=== PATIENT | female | born 1955 ===

== ENCOUNTER 2025-06-13 12:48 | Outpatient (AMB) | payer OTHER, SELFPAY ==
--- OUTSIDE RECORDS SUMMARY | 2025-03-05 05:00 | XMS_ITS ---
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 * Medical History: Objective: * Vitals: Assessment: Plan: * Treatment: * Images: * The named appointment provid er may or may not be the originator of this progress note, and it is not deemed complete until electronically signed by the appointment provider. Sign off status: Pending * Provider: Monisha Glez DPM Date: 0 03/05/2025 Generated for Billy haddad/Vladislav/Millaitting on: 08/14/2024 03:05 PM EST
--- NOTE | 2025-06-13 12:58 | MHC.PC.OV ---
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 Intake Note: new patient presents with high blood pressure, diabetes and depression Microwave Radio Technician Required: No Microwave Radio Technician Name: Doctor speaks martiniquais Accompanied by: son and SLAGGER Allergies No Known Allergies Allergy (Verified 06/13/25 13:04) Medication List - Last Reconciled 06/13/25 by Unruly Jim MD acetaminophen 1,000 mg PO Q8H PRN atorvastatin 40 mg PO DAILY lidocaine 5% 1 patch topical DAILY lorazepam mg PO losartan 50 mg PO DAILY metformin 1,000 mg PO BID pantoprazole 20 mg PO BID risperidone 0.5 mg PO DAILY sitagliptin phosphate (Januvia) 100 mg PO DAILY venlafaxine ER 150 mg PO DAILY Tobacco use date assessed: 06/13/25 Fall risk assessment: 2 + Falls in past year Last assessed Fall Risk: 06/13/25 Dental Screening Dental Screen Date: 06/13/25 Did you have a dental visit in the last 12 months?: No Did you have a dental problem in the last 6 months where you did not have access to dental care?: No Was dental information given to patient?: Patient has dentist HPI HPI Comments History of Present Illness Details History of Present Illness The patient is a 70 year old individual presenting to [facility] care and for management of multiple chronic medical conditions. Chronic Pain: The patient has a history of a clavicle fracture approximately 4 months ago from a fall in the bathroom, which required surgical repair with a plate. The patient also reports chronic left leg pain, which started about 8 years ago, and is associated with difficulty bending or lifting the leg. This leg issue may have started after a fall in a bathtub. The patient also endorses associated hip and back pain. The patient has never had X-rays of the affected areas. Additionally, there is a report of pain extending down from the neck. Type 2 Diabetes Mellitus: The patient has a history of diabetes, for which the patient takes metformin and sitagliptin (Januvia). The last check-up was about two months ago, and the last lab work was done 3-4 months ago, prior to a clavicle operation. The patient has seen a tracing lathe set up operator a few months ago. Anxiety and Depression: The patient has a history of depression and anxiety, managed by a psychiatrist in [place]. Medications prescribed by the psychiatrist include risperidone and venlafaxine. The patient also has a prescription for a benzodiazepine, which the current provider has expressed concerns about due to risks of falls and fractures in the elderly. Gastroesophageal Reflux Disease: The patient has a history of reflux treated with omeprazole. The patient reports ongoing symptoms despite this medication. Dietary changes, including removing spicy sauces and citrus, have been attempted. Health Maintenance: The patient is 70 years old and has never had a colonoscopy or a Pap smear. The patient's sister of breast cancer. The last mammogram was about three years ago. The patient has never had a bone density scan for osteoporosis. The patient still has a uterus. Surgical History: - Clavicle fracture repair with plate, approximately 4 months ago - section - Cholecystectomy Medications: - Losartan 50 mg for hypertension - Metformin for diabetes - Omeprazole for reflux - Risperidone for psychiatric condition - Sitagliptin (Januvia) for diabetes - Venlafaxine for depression/anxiety - Benzodiazepine (unspecified) for psychiatric condition Social History: - Substance Use: Denies ever smoking or drinking alcohol. - Functional Status: The patient ambulates but reports difficulty walking. Family History: - A sister from breast cancer. - Denies family history of colon cancer. Diagnostic Results: - Tests: The patient has results from a sleep apnea study, which the patient does not understand. Past Medical History - Type 2 Diabetes Mellitus - Depression - Anxiety - Gastroesophageal reflux disease - Sleep apnea Health Maintenance - Order a Cologuard test for colon cancer screening. - Order a mammogram for breast cancer screening. - Order a DEXA scan for osteoporosis screening. - Order comprehensive lab work including a CBC, CMP, lipid panel, TSH, magnesium, vitamin B12, folate, vitamin D, hepatitis panel, and HIV test. [facility] Medical History (Updated 06/16/25 @ 11:39 by Unruly Jim MD) Sleep apnea Hypertension GERD (gastroesophageal reflux disease) Anxiety and depression Osteoporosis screening Post-menopausal Left shoulder pain Back pain, chronic Left leg pain History of broken collarbone Type 2 diabetes mellitus Surgical History (Updated 06/13/25 @ 13:10 by Cezar Singh CMA) History of cholecystectomy Family History (Updated 06/13/25 @ 13:11 by Cezar Singh CMA) Mother Mental problems Hypertension Sister Hypertension Cancer Social History (Updated 06/13/25 @ 13:11 by Cezar Singh CMA) Housing: Apartment Alcohol intake: never Patient Tobacco Use Status: Never used Tobacco e-Cigarette/Vaping Use: Never Used Second Hand Smoke Exposure: No service: No Current occupational status: disabled Cognitive needs: Yes Hearing needs: No Vision needs: Yes Questionnaire PHQ-9 Over the last 2 weeks, how often have you been bothered by any of the following problems? 1. Little interest or pleasure in doing things: several days 2. Feeling down, depressed, or hopeless: several days 3. Trouble falling or staying asleep, or sleeping too much: several days 4. Feeling tired or having little energy: several days 5. Poor appetite or overeating: more than half the days 6. Feeling bad about yourself - or that you are a failure or have let yourself or your family down: several days 7. Trouble concentrating on things, such as reading the newspaper or watching television: several days 8. Moving or speaking so slowly that other people could have noticed. Or the opposite - being so fidgety or restless that you have been moving around a lot more than usual: not at all 9. Thoughts that you would be better off or of hurting yourself in some way: not at all Total score: 8 Depression Screening Interpretation: Negative Depression Screening Done: Yes 78096 - PHQ-9 Billing: Yes Source: Developed by Drs. Jeanmarie Newell, Opal Madrid, Rome Martínez and colleagues, with an educational bear from [employer]. Thrive Questionnaire Date Thrive assessed: 06/13/25 I am a: Parent/Caregiver What is your living situation today?: I have a steady place to live Within the past 12 months, did the food you bought not last and you didn't have the money to get more?: I choose not to answer this question Within the past 12 months, did you worry whether your food would run out before you got money to buy more?: I choose not to answer this question Do you have trouble paying for medicines?: No Do you have trouble getting transportation to medical appointments?: No Do you have trouble paying your heating and electricity bill?: Yes Do you have trouble taking care of your child, family member or friend?: No Are you currently unemployed and looking for a job?: I choose not to answer this question Are you interested in more education?: No Please select the resources that you would like help with: None Currently or been in a relationship where the following occur: No concerns reported THRIVE Score: 1 AUDIT C Alcohol Use Questionnaire (AUDIT-C) 1. How often do you have a drink containing alcohol?: Never Total Score: 0 MARIA ELENA-7 AMB Questionnaire MARIA ELENA-7 Date MARIA ELENA - 7 assessed: 06/13/25 Feeling nervous, anxious, or on edge: 0 = Not at all Not being able to stop or control worryin = Several days Worrying too much about different things: 1 = Several days Trouble relaxin = Several days Being so restless that it is hard to sit still: 0 = Not at all Becoming easily annoyed or irritable: 1 = Several days Feeling afraid as if something awful might happen: 0 = Not at all Total MARIA ELENA-7 score (0-4 normal; 5-9 mild; 10-14 moderate; 15-21 severe): 4 Source: Developed by Drs. Jeanmarie Newell, Opal Madrid, Rome Martínez and colleagues, with an educational bear from [employer]. MARIA ELENA-7 Assessment Billing MARIA ELENA-7 Assessment Tool: MARIA ELENA-7 Assessment 01994 Review of Systems Narrative Review of Systems - Psychiatric: Reports history of depression and anxiety. - Gastrointestinal: Reports reflux symptoms. - Musculoskeletal: Reports chronic left leg pain with difficulty bending and lifting the leg, left hip pain, back pain, and pain down from the neck. - Neurological: Denies a known history of epilepsy but mentions a rash in childhood that the patient thought might have been related. - All other systems reviewed and are negative. 10-point ROS reviewed and negative except as noted in HPI Physical exam (Primary Care) Vital Signs: Last Vital Signs Temp 97.6 F 06/13/25 13:12 Pulse 110 H 06/13/25 13:12 Resp 18 06/13/25 13:12 BP 125/69 06/13/25 13:12 Pulse Ox 96 06/13/25 13:12 Oxygen Delivery Method Room Air 06/13/25 13:12 Tobacco/Smoking Status: Tobacco use Status Tobacco use date assessed 06/13/25 06/13/25 13:13 Patient Tobacco Use Status Never used Tobacco 06/13/25 13:13 e-Cigarette/Vaping Use Never Used 06/13/25 13:13 PHQ-9: PHQ-9 Score PHQ-9: Total score 8 06/13/25 13:19 Depression Screening Interpretation: Negative Thrive Assessment: Date of Thrive Assessment Date Thrive assessed 06/13/25 06/13/25 13:01 Currently or been in a relationship where the following occur: No concerns reported Narrative Physical Exam General: Well-appearing, in no acute distress. Vital signs: Within normal limits. HEENT: Normocephalic, atraumatic. PERRLA, EOMI. Conjunctiva clear, sclera anicteric. Oropharynx clear, mucous membranes moist. TMs intact bilaterally. Neck: Supple, no lymphadenopathy, no thyromegaly, no JVD or carotid bruits. Cardiovascular: RRR, normal S1/S2, no murmurs, rubs, or gallops. Peripheral pulses 2+ and symmetric. No edema. Respiratory: Lungs clear to auscultation bilaterally, no wheezes, rales, or rhonchi. Normal effort. Abdomen: Soft, non-tender, non-distended. Normoactive bowel sounds. No hepatosplenomegaly, no masses. MSK: Limited range of motion in the left leg, difficulty bending and lifting. History of fracture in the clavicle and section. No joint swelling or deformity. Normal gait. Skin: Warm, dry, intact. No rashes, lesions, or pallor. Neuro: Alert and oriented x3. Cranial nerves II-XII intact. Strength 5/5 throughout. Sensation intact. Reflexes 2+ symmetric. Normal coordination and gait. Psych: Appropriate mood and affect. Normal judgment and insight. History of depression and anxiety, currently on risperidone and venlafaxine. Coding Level of Care Code New Pt Level 4 (47298) Diagnoses Type 2 diabetes mellitus E11.9 Osteoporosis screening Z13.820 Post-menopausal Z78.0 Back pain, chronic M54.9; G89.29 Left leg pain M79.605 Left shoulder pain M25.512 Anxiety and depression F41.9; F32.A GERD (gastroesophageal reflux disease) K21.9 Hypertension I10 Sleep apnea G47.30 Additional Codes MARIA ELENA-7 Assessment Billing - MARIA ELENA-7 Assessment Tool: MARIA ELENA-7 Assessment 55311 ([id number]) PHQ-9 - 65566 - PHQ-9 Billing: Yes ([id number]) Assessment & Plan Assessment & Plan (1) Type 2 diabetes mellitus: Code(s): E11.9 - Type 2 diabetes mellitus without complications Category: Medical (2) Osteoporosis screening: Code(s): Z13.820 - Encounter for screening for osteoporosis Category: Medical (3) Post-menopausal: Code(s): Z78.0 - Asymptomatic menopausal state Category: Medical (4) Back pain, chronic: Code(s): M54.9 - Dorsalgia, unspecified; G89.29 - Other chronic pain Category: Medical (5) Left leg pain: Code(s): M79.605 - Pain in left leg Category: Medical (6) Left shoulder pain: Code(s): M25.512 - Pain in left shoulder Category: Medical (7) Anxiety and depression: Code(s): F41.9 - Anxiety disorder, unspecified; F32.A - Depression, unspecified Category: Medical (8) GERD (gastroesophageal reflux disease): Code(s): K21.9 - Gastro-esophageal reflux disease without esophagitis Category: Medical (9) Hypertension: Code(s): I10 - Essential (primary) hypertension Category: Medical (10) Sleep apnea: Code(s): G47.30 - Sleep apnea, unspecified Category: Medical Plan Consent The options for colon cancer screening were discussed with the patient. The first option presented was a colonoscopy, which involves referral to a sensitized paper tester, a preparation the day before, sedation for the procedure, and if results are normal, is repeated in 10 years. The second option presented was Cologuard, an at-home stool-based test kit that is mailed to the patient's house, and if normal, is repeated in three years. The patient was asked to decide which option is preferred. Patient was informed and verbally consented to the use of an ambient scribe for clinic note documentation during this visit. Plan 1. Chronic Pain - Order X-rays of the cervical, thoracic, and lumbar spine, as well as the hip and leg. - Refer to physical therapy for evaluation and management of back and leg pain. - Prescribe lidocaine patches for symptomatic relief. - Advise use of a heating pad at home. 2. Type 2 Diabetes Mellitus - Continue current medications including metformin and sitagliptin. - Order labs including hemoglobin A1c. - Refer to a tracing lathe set up operator for foot care. - Refer to an personal service workers for a diabetic eye exam. - Refer to a concrete form setter and a coding educator for counseling. 3. Gastroesophageal Reflux Disease - Discontinue omeprazole due to lack of efficacy. - Start pantoprazole, to be taken twice a day. 4. Depression And Anxiety - Patient to continue care with their psychiatrist. - Continue risperidone and venlafaxine as prescribed. - Will not prescribe or refill benzodiazepines due to the high risk of falls and adverse events in an elderly patient. Discussion Notes I had a detailed discussion with the patient about the established plan of care. I explained that I would not be prescribing any benzodiazepines due to the significant risk of falls, dizziness, and potential for hip fractures in a patient of this age, which carries a high mortality risk. We reviewed the two primary options for colon cancer screening: a colonoscopy through a specialist, which is valid for 10 years if negative, or an at-home Cologuard test, which is valid for three years. For the ongoing reflux symptoms, I explained we would stop the current medication, omeprazole, and start pantoprazole twice daily to see if it provides better relief. To investigate the chronic musculoskeletal pain, I have ordered a series of X-rays and a referral to physical therapy. I also recommended using lidocaine patches and heat for symptomatic relief. Finally, I placed orders for comprehensive lab work, a mammogram, and a DEXA scan to address health maintenance, along with referrals to podiatry, ophthalmology, a concrete form setter, and a coding educator for comprehensive management of diabetes. Patient Instructions - You will be switched from omeprazole to pantoprazole for your stomach acid. - Please take one pill in the morning and one in the evening. - For your pain, you may use lidocaine patches and apply a heating pad to the affected areas. - You have been referred to physical therapy for your leg and back pain. - Please go to a lab to have your blood drawn for the tests that were ordered. - Orders have been placed for X-rays of your neck, back, hip, and leg. - A Cologuard kit will be mailed to your home for colon cancer screening. - Please follow the instructions provided in the box. - Please schedule an appointment for a mammogram and a bone density (DEXA) scan. - We are referring you to an eye doctor, a foot doctor, a concrete form setter, and a coding educator. - Please make appointments with these specialists. - This office will not prescribe anxiety medications like benzodiazepines due to safety risks. - Please discuss this with your psychiatrist. Medical Decision Making The patient is a 70 year old individual establishing care with multiple undertreated chronic conditions and significant gaps in health maintenance. The patient's widespread chronic musculoskeletal pain, particularly in the left leg and hip, has been present for years without a formal workup; therefore, imaging with X-rays and a referral to physical therapy are indicated to establish a diagnosis and treatment plan. The patient's GERD symptoms persist despite treatment with omeprazole, suggesting the need for a change in therapy. I am escalating care by switching to pantoprazole twice daily. A significant portion of the visit was dedicated to addressing overdue preventative screenings appropriate for the patient's age. Given the lack of any prior screening, I ordered a mammogram, a DEXA scan, and a Cologuard test after discussing the alternatives. Comprehensive lab work will provide a baseline and assess the status of chronic conditions like diabetes. Finally, the use of a benzodiazepine in this 70-year-old patient presents a major safety concern. The risks of falls and subsequent fracture far outweigh the benefits, and I have made the decision not to continue this prescription from my office, counseling the patient on the clear rationale. Holistic management of the patient's diabetes necessitates referrals to ophthalmology, podiatry, and nutrition. Total Time Statement 30 min Total time spent caring for the patient today includes pre-visit chart review, documentation, review of laboratory and diagnostic imaging results, medication reconciliation, medically necessary evaluation, counseling on diagnoses, care coordination, ordering appropriate tests and medications, review of tests performed by other providers, reporting test results to the patient, and communication with other healthcare providers. Orders: Orders Hepatitis B Surface Antigen 06/13/25 Z13.9 - Encounter for screening, unspecified TSH reflex Free T4 06/13/25 Z13.9 - Encounter for screening, unspecified UA CC w/rflx Micro + Cult 06/13/25 Z13.9 - Encounter for screening, unspecified Lipid Panel 06/13/25 Z13.9 - Encounter for screening, unspecified Vitamin B12 and Folate 06/13/25 Z13.9 - Encounter for screening, unspecified Hemoglobin A1c 06/13/25 Z13.9 - Encounter for screening, unspecified XR hip LT min 2V 06/13/25 M79.605 - Pain in left leg Complete Blood Count Auto Diff 06/13/25 Z13.9 - Encounter for screening, unspecified Syphilis Screen 06/13/25 Z13.9 - Encounter for screening, unspecified Comprehensive Met. Panel 06/13/25 Z13.9 - Encounter for screening, unspecified Hepatitis C Antibody 06/13/25 Z13.9 - Encounter for screening, unspecified HIV Ab/Ag 06/13/25 Z13.9 - Encounter for screening, unspecified Magnesium 06/13/25 Z13.9 - Encounter for screening, unspecified Vitamin D 1,25 dihydroxy 06/13/25 Z13.9 - Encounter for screening, unspecified Hepatitis B Surface Antibody 06/13/25 Z13.9 - Encounter for screening, unspecified MM screening mammo BI 06/13/25 Z12.31 - Encounter for screening mammogram for malignant neoplasm of breast XR femur LT 2V 06/13/25 M79.605 - Pain in left leg XR lumbar spine 2-3V 06/13/25 G89.29 - Other chronic pain, M54.9 - Dorsalgia, unspecified XR cervical spine 4V 06/13/25 G89.29 - Other chronic pain, M54.9 - Dorsalgia, unspecified XR thoracic spine 3V 06/13/25 G89.29 - Other chronic pain, M54.9 - Dorsalgia, unspecified PT Evaluation and Treatment 06/13/25 G89.29 - Other chronic pain, M25.512 - Pain in left shoulder, M54.9 - Dorsalgia, unspecified, M79.605 - Pain in left leg XR DEXA axial skeleton 06/13/25 Z13.820 - Encounter for screening for osteoporosis, Z78.0 - Asymptomatic menopausal state Referrals Nurse Navigator Referral E11.9 - Type 2 diabetes mellitus without complications Neurology Referral E11.9 - Type 2 diabetes mellitus without complications Cologuard Test Z12.11 - Encounter for screening for malignant neoplasm of colon, Z12.12 - Encounter for screening for malignant neoplasm of rectum Podiatry Referral E11.9 - Type 2 diabetes mellitus without complications Ophthalmology Referral E11.9 - Type 2 diabetes mellitus without complications Medications: New lidocaine 5% leave on most painful area for up to 12 hrs 1 patch topical DAILY 15 ea 0RF M25.512 - Pain in left shoulder losartan 50 mg PO DAILY 90 tabs 0RF pantoprazole 20 mg PO BID 60 tabs 0RF
[2025-06-13 13:12] VITALS: BP 125/69; PULSE 110; RESP 18; TEMP 36.4; O2SAT 96
--- OUTSIDE RECORDS SUMMARY | 2025-06-13 15:06 | XMS_ITS | Patient Health Record ---
Author Organization [facility] Arielle barker [place] Address [address] [place] [id number] Care Team Providers Care Stage Manager Name Role Phone Rosa Maria Newton Primary Care Provider Jarred Aly Unavailable [phone] Reason For Referral No Information Plan Of Treatment No Information Insurance Providers Payer Name Payer Address Payer Phone Subscriber Number Group Number Insured Name Patient Relationship to Insured Coverage Start Date Coverage End Date [facility] [id number] ROX[place] Dodson [id number] Dion Raman Self - patient is the insured
== END 2025-06-13 13:47 | disposition home or self-care (01) ==
LOC: HO.HMCFMS 12:49
PROVIDERS: Visit Provider Student in an Organized Health Care Education/Training Program
DX: E11.9 Type 2 diabetes mellitus without complications (principal); Z13.820 Encounter for screening for osteoporosis; Z78.0 Asymptomatic menopausal state; M54.9 Dorsalgia, unspecified; G89.29 Other chronic pain; M79.605 Pain in left leg; M25.512 Pain in left shoulder; F41.9 Anxiety disorder, unspecified; F32.A Depression, unspecified; K21.9 Gastro-esophageal reflux disease without esophagitis; I10 Essential (primary) hypertension; G47.30 Sleep apnea, unspecified

== ENCOUNTER 2025-06-13 12:48 | Outpatient (REF) | payer OTHER, SELFPAY ==
--- OUTSIDE RECORDS SUMMARY | 2025-06-13 16:38 | XMS_ITS | Clinical Summary ---
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 Name Role Phone Rosa Maria Newton MD Primary Care Provider [phone] Encounters Date Type Department Care Team Description 03/27/2025 Telephone Gastroenterology - [place] [address] [address] Cynthia Bonilla MA from Last 3 Months Social History Tobacco Use Types Packs/Day Years Used Date Smoking Tobacco: Never Assessed Comments Unknown Sex and Gender Information Value Date Recorded Sex Assigned at Not on file Legal Sex Female 3:59 AM EST Gender Identity Not on file Sexual Orientation Not on file Plan of Treatment Health Maintenance Due Date Last Done Comments Breast Cancer Screening 1955 Colorectal Cancer Screening: Colonoscopy 1955 Zoster Vaccines (1 of 2) 2005 Hepatitis B Vaccines (2 of 3 - 19+ 3-dose series) 12/15/2018 11/17/2018 Pneumococcal Vaccine: 50+ Ye ars (2 of 2 - PCV) 08/19/2019 08/19/2018 Falls Risk Assessment 06/14/2022 Hepatitis C Screening 06/14/2022 Medicare Annual Wellness Visit 06/14/2022 Osteoporosis Screening (Bone Density Screening) 06/14/2022 Social Influencers of Health Screening 06/14/2022 Depression Screening 07/12/2024 COVID-19 Vaccine ( - 2024-2 6 season) 2025 Influenza Vaccine (#1) 2025 04/06/2018 DTaP,Tdap,and Td Vaccines (2 - Td or Tdap) 08/19/2028 08/19/2018 RSV Immunization Adult Patie nts (1 - 1-dose 75+ series) 2030 HIB Vaccines Aged Out No longer eligi ble based on patient's age to complete this topic HPV Vaccines Aged Out No longer eligi ble based on patient's age to complete this topic Hepatitis A Vaccines Aged Out No long er eligible based on patient's age to complete this topic IPV Vaccines Aged Out No longer eligi ble based on patient's age to complete this topic MMR Vaccines Aged Out No longer eligi ble based on patient's age to complete this topic Meningococcal ACWY Vaccine Aged Out N o longer eligible based on patient's age to complete this topic Meningococcal B Vaccine Aged Out No l onger eligible based on patient's age to complete this topic RSV Immunization Patients Un rosana 20 months Aged Out No longer eligible b ased on patient's age to complete this topic Varicella Vaccines Aged Out No longer eligible based on patient's age to complete this topic Insurance [place]ICA[place] - [place] [facility] [employer] [employer]AGE Care Teams Trolley Car Operator Relationship Specialty Start Date End Date Rosa Maria Newton MD [address] [id number] PCP - General Internal Medicine 03/27/25
[2025-06-13 18:36] LABS: MANUAL DIFF FLAG NO
[2025-06-13 19:19] LABS: Hematocrit 44.8 % (37.0-47.0); Hemoglobin 14.7 g/dl (12.0-16.0); Imm Gran Abs Auto 0.03 X10*3/uL (0.00-0.03); Imm Gran Pct Auto 0.3 % (0.0-0.4); Lymphocytes Absolute Auto 3.1 X10*3/uL (1.2-4.9); Mean Corpuscular HGB Conc 32.8 g/dl (31.0-35.0); Mean Corpuscular Hemoglobin 29.6 pg (27.0-33.0); Mean Corpuscular Volume 90.1 fL (80.0-98.0); NRBC Abs Auto 0.000 X10*3/uL (0.0-0.012); NRBC Pct Auto 0.0 /100WBC (0.0-0.2); Platelet Count 328 X10*3/uL (160-400); Red Blood Count 4.97 X10*6/uL (4.20-5.50); White Blood Count 10.5 X10*3/uL (4.8-10.8)
[2025-06-13 19:23] LABS: Alanine Aminotransferase 28 U/L (0-31); Albumin Level 4.6 g/dL (3.5-5.0); Alkaline Phosphatase 91 U/L (39-117); Anion Gap 15 (12-20); Aspartate Amino Transferase 27 U/L (5-31); Blood Urea Nitrogen 18 mg/dL (9-16); Calcium 10.0 mg/dL (8.4-10.2); Carbon Dioxide 25 mmol/L (22-29); Chloride 103 mmol/L (96-108); Cholesterol 297 mg/dL (<200); Estimated Glomerular Filt Rate > 60; HDL Cholesterol 48 mg/dL (>40); Magnesium 1.7 mg/dL (1.6-2.6); Potassium 4.3 mmol/L (3.3-5.1); Sodium 139 mmol/L (135-145); Total Protein 8.0 g/dL (6.5-8.0); Triglycerides 212 mg/dL (<150)
[2025-06-13 19:31] LABS: Folate 12.7 ng/mL (> or = 4.0); Vitamin B12 702 pg/mL (200-900)
[2025-06-14 06:34] LABS: Syphilis Screen Nonreactive (Nonreactive)
[2025-06-14 07:07] LABS: HBS Num1 0.83 mIU/mL (0-7.99); HBsAGNum1 0.36 S/CO (0.00-0.99); HIV Num 1 0.07 S/CO (0.00-0.99); Hepatitis B Surface Antigen Negative (Negative); ~HepC Num1 0.15 S/CO (0.00-0.79); ~Hepatitis B Surface Antibody NONREACTIVE (Nonreactive); ~Hepatitis C Antibody Nonreactive (Nonreactive)
[2025-06-17 14:23] LABS: VITAMIN D (1,25 OH) D3 47 pg/mL; Vit D (1,25-Dihydroxy) Total 47 pg/mL (18-72); Vitamin D (1,25 OH) D2 <8 pg/mL
== END 2025-06-13 12:49 | disposition home or self-care (01) ==
LOC: HO.HKASLDS 12:48
PROVIDERS: PCP Student in an Organized Health Care Education/Training Program; Visit Provider Student in an Organized Health Care Education/Training Program
DX: E11.9 Type 2 diabetes mellitus without complications (principal); Z13.31 Encounter for screening for depression; Z13.39 Encounter for screening examination for other mental health and behavioral disorders; M54.9 Dorsalgia, unspecified; G89.29 Other chronic pain; M79.605 Pain in left leg; M25.512 Pain in left shoulder; F41.9 Anxiety disorder, unspecified; F32.A Depression, unspecified; K21.9 Gastro-esophageal reflux disease without esophagitis; I10 Essential (primary) hypertension; G47.30 Sleep apnea, unspecified
CPT/HCPCS: 36415; 80053; 80061; 82607; 82652; 82746; 83036; 83735; 84443; 85025; 86706; 86780; 86803; 87340; 87389; 96127; 99202

== ENCOUNTER 2025-06-18 09:01 | Outpatient (RCR) | payer OTHER, SELFPAY | END 2025-06-20 14:18 | disposition home or self-care (01) | LOC: HO.PTS 09:01 | PROVIDERS: Visit Provider Student in an Organized Health Care Education/Training Program | DX: M54.9 Dorsalgia, unspecified (principal); G89.29 Other chronic pain; M79.605 Pain in left leg; M25.512 Pain in left shoulder ==